=== PATIENT | female | born 1960 | race Hispanic/Latino ===

== ENCOUNTER → 2016-12-27 | Day surgery (SDC) | payer OTHER ==
--- NOTE | 2016-12-24 09:04 | Diagnostic Imaging Report ---
PROCEDURE: Frontal and lateral views of the chest. COMPARISON: None. INDICATIONS: PRE OPERATIVE CHEST FOR BUNIONECTOMY FINDINGS: Lines/tubes: None. Lungs: The lungs are well inflated and clear. There is no evidence of pneumonia or pulmonary edema. Pleura: There is no pleural effusion or pneumothorax. Heart and mediastinum: The heart and the mediastinum are normal. Bones: No acute bony abnormality. IMPRESSION: No acute radiographic abnormality. Dictated by: Kevin Farmer M.D. on 12/24/2016 at 9:10 Electronically approved by: Kevin Farmer M.D. on 12/24/2016 at 9:10
[2016-12-24 09:07] LABS: BASOPHILS # (AUTO) 0.1 (0.0-0.1); EOSINOPHILS # (AUTO) 0.2 (0.0-0.4); EOSINOPHILS % 3.8 % (0.0-6.0); HEMATOCRIT 39.4 % (34.2-44.1); HEMOGLOBIN 13.3 g/dL (12.0-16.0); LYMPHOCYTES # (AUTO) 1.4 (1.0-3.2); LYMPHOCYTES % 27.5 % (18.0-39.1); MEAN CORPUSCULAR HEMOGLOBIN 31.7 pg (28-32); MEAN CORPUSCULAR HGB CONC 33.8 g/dL (31-35); MONOCYTES # (AUTO) 0.4 (0.2-0.8); MONOCYTES % 6.7 % (4.4-11.3); NEUTROPHILS # (AUTO) 3.2 (2.1-6.9); NEUTROPHILS % 60.8 % (38.7-80.0); PLATELET COUNT 265 x10e3/uL (140-360); RED BLOOD COUNT 4.19 x10e6/uL (3.6-5.1); RED CELL DISTRIBUTION WIDTH 12.7 % (11.7-14.4)
[2016-12-24 09:31] LABS: BLOOD UREA NITROGEN 11 mg/dL (7-26); BUN/CREATININE RATIO 14 (6-25); CALCIUM 9.6 mg/dL (8.4-10.2); CARBON DIOXIDE 26 mmol/L (22-29); CHLORIDE 108 mmol/L (98-107); EST GLOMERULAR FILTRATION RATE > 60 ML/MIN (60-); GLUCOSE 105 mg/dL (74-118); SODIUM 144 mmol/L (136-145)
[~2016-12-27] MED LIST: ADDERALL 30 MG30 MG PO; BETAMETHASONE DISODIUM PHOS 6 MG/ML VIAL ONE; BUPIVACAINE HCL 0.5% INJ 30 ML VIAL INJ ONE; CEFAZOLIN SOD 1 GM VIAL ONE; DEXAMETHASONE SOD PHOS INJ 4 MG/ML VIAL ONE; FENTANYL CITRATE/PF 100MCG/2 ML INJ ONE; HYDROMORPHONE 2MG/ML INJ ONE; KETOROLAC TROMETHAMINE 30 MG/ML VIAL ONE; LIDOCAINE HCL 2% LOCAL INJ 5 ML SDV VIAL INJ ONE; MIDAZOLAM HCL 2 MG/2 ML VIAL ONE; ONDANSETRON HCL INJ 2 MG/ML VIAL ONE; PROPOFOL IV EMULSION 10 MG/ML 20 ML VIAL ONE; SEVOFLURANE INHAL SOLN 250 ML PEN BTL ONE
--- NOTE | 2016-12-27 10:05 | Diagnostic Imaging Report ---
PROCEDURE:X-RAY RIGHT FOOT, TWO VIEWS COMPARISON:None. INDICATIONS:POST OP BUNIONECTOMY FINDINGS: See conclusion. CONCLUSION: AP and lateral post-operative views of the right foot with overlying bandage material show post-surgical changes of a bunionectomy and arthroplasty with wire and screw through the distal first metatarsal and the and second and third digits. There is surrounding soft-tissue swelling consistent with recent surgery. Please refer to performing physician's notes for full details of this procedure. Jack Blackwell D.O. Dictated by: Jack Blackwell D.O. on 12/27/2016 at 10:12 Electronically approved by: Jack Blackwell D.O. on 12/27/2016 at 10:12
--- NOTE | 2017-01-30 09:46 | Operative Report ---
PREOPERATIVE DIAGNOSES 1. Painful hallux valgus deformity, right foot. 2. Painful contracted hammertoe, second digit, right foot. 3. Painful contracted hammertoe, third digit, right foot. 4. Painful contracted hammertoe, fifth digit, right foot. 5. Exostosis, fourth digit, right foot. POSTOPERATIVE DIAGNOSES 1. Painful hallux valgus deformity, right foot. 2. Painful contracted hammertoe, second digit, right foot. 3. Painful contracted hammertoe, third digit, right foot. 4. Painful contracted hammertoe, fifth digit, right foot. 5. Exostosis, fourth digit, right foot. OPERATIVE PROCEDURE 1. Ovidio bunionectomy with screw fixation with capsule capsulorrhaphy. 2. Arthroplasty, second with K-wire fixation. 3. Arthroplasty, third with K-wire fixation. 4. Arthroplasty, fifth. 5. Exostectomy, fourth digit, right foot. 6. Intraoperative use of fluoroscopy. 7. Trigger point shot of cortisone. 8. Application of posterior splint. ANESTHESIA: General. HEMOSTASIS: Pneumatic thigh tourniquet at 350 mmHg. PROCEDURE IN DETAIL: The patient was taken into the operating room and placed on the operating room table in the supine position. Following induction of general anesthesia by the anesthesiologist, Webril wraps were placed on the patient's right thigh followed by application of right thigh tourniquet. The right lower extremity was then prepped and draped in the usual aseptic manner. The following procedures were then performed: Ovidio bunionectomy with screw fixation of right foot. Attention was directed to the dorsomedial aspect of the first MPJ where a 6-cm linear incision was performed. Incision was deepened down to the joint capsule. A longitudinal capsulotomy was then performed exposing the dorsomedial exostosis to the first metatarsal head. A medial release consisting of fibular sesamoidal ligament release and adductor tendon release was then performed to the first interspace. A V osteotomy was then performed from medial to lateral. Capital fragment was then transferred unilaterally. Upon adequate surgical and anatomical reduction utilizing proper AO technique, a 2.0 x 16-mm cortical screw in conjunction with a buried 0.045 K-wire was used to achieve stability at the osteotomy site. All redundant bone medially was excised via the use of an oscillating saw and rotating fermín. Arthroplasty, second with K-wire fixation. Attention was then directed to the above-mentioned toe overlying the proximal phalangeal joint where a 3-cm linear incision was performed. Incision was deepened down to the level of the joint capsule. A transverse capsulotomy was then performed exposing the head of the proximal phalanx. Via the use of an oscillating saw, the above proximal phalanx was excised from the operation site in toto. All rough and bony edges were rasped smooth. The toe was still noted to be contracted, so a 0.045 K-wire was introduced crossing the metatarsophalangeal joint to achieve proper anatomic reduction. Arthroplasty, third with K-wire fixation. Attention was then directed to the above-mentioned toe overlying the proximal phalangeal joint where a 3-cm linear incision was performed. Incision was deepened down to the level of the joint capsule. A transverse capsulotomy was then performed exposing the head of the proximal phalanx. Via the use of an oscillating saw, the above proximal phalanx was excised from the operation site in toto. All rough and bony edges were rasped smooth. The toe was still noted to be contracted, so a 0.045 K-wire was introduced crossing the metatarsophalangeal joint to achieve proper anatomic reduction. Arthroplasty, fifth. Attention was then directed to the above-mentioned toe overlying the proximal phalangeal joint where a 3-cm linear incision was performed. Incision was deepened down to the level of the joint capsule. A transverse capsulotomy was then performed exposing the head of the proximal phalanx. Via the use of an oscillating saw, the above proximal phalanx was excised from the operation site in toto. All rough and bony edges were rasped smooth. Exostectomy, fourth digit, right foot. Attention was then directed to the lateral aspect of the distal interphalangeal joint where a linear incision was performed laterally. Incision was then deepened down to the joint capsule. A longitudinal capsulotomy was then performed exposing the exostosis to the head of the middle phalanx and base of the distal phalanx of the fourth digit, left foot. Utilizing a [place] 44 fermín, the exostosis was excised from the operation site in toto, and all rough and bony edges were rasped smooth. All areas were then copiously flushed with sterile antibiotic solution and suctioned. Intraoperative use of fluoroscopy was then used to make sure proper alignment fixation was achieved. Closure was then obtained utilizing 3-0 Vicryl, 4-0 Vicryl, and 4-0 nylon for capsule, subcutaneous tissue, and skin respectively. An inverted L-capsulorrhaphy was performed overlying the first metatarsophalangeal joint to try to maintain proper anatomic reduction. Trigger point shot of cortisone was then given to the first and fourth interspace of the right foot. Then, approximately 18-20 mL of 0.5% plain Marcaine were used to achieve local anesthesia to the above-noted surgical area. Sterile dressing was applied. Upon release of the thigh tourniquet, blood hyperemia was noted immediately to all digits of the patient's right foot. Application of posterior splint. A properly placed posterior splint was then applied keeping the foot at 90 degrees with respect to the leg to try to prevent postop complications. The patient was then transferred from the OR to recovery room with vital signs stable and neurovascular status intact. No intraoperative complications were encountered. Blood loss from the surgery was minimal. The patient to remain nonweightbearing with the aid of crutches, keep her foot elevated, and is to apply an ice pack to the ankle joint area. Job#: [id number] SAK
== END | disposition home or self-care (01) ==
LOC: OR 05:19
PROVIDERS: ATTEND Podiatrist Foot Surgery
DX: M20.11 Hallux valgus (acquired), right foot (principal); M20.41 Other hammer toe(s) (acquired), right foot; M77.51 Other enthesopathy of right foot and ankle; F90.9 Attention-deficit hyperactivity disorder, unspecified type; Z01.810 Encounter for preprocedural cardiovascular examination; Z01.812 Encounter for preprocedural laboratory examination; Z01.818 Encounter for other preprocedural examination
CPT/HCPCS: 28108; 28285 ×3; 28296; 36415; 71020; 73620; 80048; 85025; 93005; C1713; J0690; J0720; J1100; J1170; J1885; J2001; J2250; J2405